=== PATIENT | female | born 1945 | race Caucasian/White ===

== ENCOUNTER → 2020-07-13 16:57 | Outpatient (CLI) | payer MEDICARE, BC, SELFPAY ==
[2020-07-13 17:40] LABS: Add Manual Diff / Slide Review NO; Basophils Absolute Auto 100 /uL (0-100); Basophils Percent Auto 0.7 % (0-2); Eosinophils Absolute Auto 200 /uL (0-450); Eosinophils Percent Auto 2.3 % (2-4); Hematocrit 41.8 % (36-46); Hemoglobin 14.1 g/dL (12.0-16.0); Lymphocytes Absolute Auto 2900 /uL (1100-4500); Lymphocytes Percent Auto 32.4 % (25-40); Mean Corpuscular HGB Conc 33.6 % (30-36); Mean Corpuscular Hemoglobin 31.6 PG (26-34); Monocytes Absolute Auto 700 /uL (0-900); Monocytes Percent Auto 8.1 % (3-14); Neutrophils Absolute Auto 5000 /uL (1500-7000); Neutrophils Percent Auto 56.5 % (50-75); Platelet Count 256 X10^3/uL (150-400); Red Blood Cell Count 4.45 X10^6/uL (4.0-5.2); Red Cell Distribution Width 13.3 % (11.6-14.8); White Blood Cell Count 8.9 X10^3/uL (4.5-11.0)
[2020-07-13 18:19] LABS: Magnesium 2.3 mg/dL (1.6-2.3); Phosphorous 4.4 mg/dL (2.8-4.1)
[2020-07-13 18:33] LABS: Vitamin D 25 Hydroxy (D3) 66.7 ng/mL (30.0-100.0)
[2020-07-13 18:34] LABS: Free T3, Triiodothyronine Free 4.15 pg/mL (2.77-5.27)
[2020-07-13 18:48] LABS: TSH w/ Reflex to FT4 0.02 uIU/mL (0.47-4.68)
[2020-07-13 20:04] LABS: Free T4, Direct Thyroxine 1.41 ng/dL (0.78-2.19)
[2020-07-14 07:08] LABS: Parathyroid Hormone Int 46 pg/mL (15-65)
[2020-07-19 07:48] LABS: Triiodothyronine T3 Reverse 16.5 ng/dL (9.2-24.1)
== END ==
PROVIDERS: PCP Family Medicine; Referring Provider Family Medicine; Visit Provider Family Medicine
DX: E03.9 Hypothyroidism, unspecified (principal); M81.8 Other osteoporosis without current pathological fracture
CPT/HCPCS: 36415; 82306; 83735; 83970; 84100; 84439; 84443; 84481; 84482; 85025

== ENCOUNTER → 2020-08-01 11:56 | Outpatient (CLI) | payer MEDICARE, BC, SELFPAY ==
--- NOTE | 2020-08-01 | DI.MG.S_ITS ---
BILATERAL DIGITAL SCREENING MAMMOGRAM 3D/2D WITH CAD: 08/01/2020 CLINICAL: Routine screening. Comparison is made to exams dated: 03/03/2019 mammogram, 02/16/2018 mammogram, and 11/04/2016 mammogram - outside location. There are scattered fibroglandular elements in both breasts. Current study was also evaluated with a Computer Aided Detection (CAD) system. There are benign post operative findings in the left breast. No significant masses, calcifications, or other findings are seen in either breast. There has been no significant interval change. IMPRESSION: BENIGN There is no mammographic evidence of malignancy. A 1 year screening mammogram is recommended. This exam was interpreted at Station ID: [id number]. NOTE: For mammograms, a report in lay terms will be sent to the patient. Approximately 15% of breast malignancies will not be visualized mammographically. In the management of a palpable breast mass, a negative mammogram must not discourage biopsy of a clinically suspicious lesion. Electronically Signed By: Adryan baca/emir:08/01/2020 13:40:35 letter sent: Normal Exam ACR BI-RADS Category 2: Benign Finding(s) 3342F
== END ==
PROVIDERS: PCP Family Medicine; Referring Provider Family Medicine; Visit Provider Family Medicine
DX: Z12.31 Encounter for screening mammogram for malignant neoplasm of breast (principal)
CPT/HCPCS: 77063; 77067

== ENCOUNTER → 2020-08-08 16:05 | Outpatient (CLI) | payer MEDICARE, BC, SELFPAY ==
[2020-08-08 18:14] LABS: Alanine Aminotransferase 49 IU/L (<35); Albumin 4.2 g/dL (3.5-5.0); Albumin Globulin Ratio 1.6 (1.0-2.8); Alkaline Phosphatase 68 U/L (38-126); Aspartate Aminotransferase 47 IU/L (14-36); BUN Creatinine Ratio 20.3 (6-22); Bilirubin Total 0.7 mg/dL (0.2-1.3); Blood Urea Nitrogen 16 mg/dL (7-17); Calcium 9.5 mg/dL (8.4-10.2); Carbon Dioxide 26 mmol/L (22-32); Chloride 107 mmol/L (98-107); Estimated Glomerular Filt Rate > 60.0 mL/min (>60); Globulin 2.7 g/dL (1.7-4.1); Glucose 220 mg/dL (80-110); HEMOLYSIS 16 (0-50); Potassium 3.9 mmol/L (3.4-5.1); Sodium 142 mmol/L (137-145); Total Protein 6.9 g/dL (6.3-8.2)
== END ==
PROVIDERS: PCP Family Medicine; Referring Provider Family Medicine; Visit Provider Family Medicine
DX: M81.8 Other osteoporosis without current pathological fracture (principal)
CPT/HCPCS: 36415; 80053

== ENCOUNTER → 2021-06-05 10:44 | Outpatient (CLI) | payer MEDICARE, OTHER, SELFPAY | PROVIDERS: PCP Family Medicine; Referring Provider Family Medicine; Visit Provider Family Medicine | DX: M81.0 Age-related osteoporosis without current pathological fracture (principal); Z78.0 Asymptomatic menopausal state; E07.9 Disorder of thyroid, unspecified; Z82.62 Family history of osteoporosis | CPT/HCPCS: 77080 ==

== ENCOUNTER → 2022-04-30 06:56 | Outpatient (CLI) | payer MEDICARE, OTHER, SELFPAY ==
[2022-04-30 07:58] LABS: Add Manual Diff / Slide Review NO; Basophils Absolute Auto 200 /uL (0-100); Basophils Percent Auto 2.4 % (0-2); Eosinophils Absolute Auto 200 /uL (0-450); Eosinophils Percent Auto 3.4 % (2-4); Hematocrit 41.6 % (36-46); Hemoglobin 13.9 g/dL (12.0-16.0); Lymphocytes Absolute Auto 2700 /uL (1100-4500); Lymphocytes Percent Auto 39.6 % (25-40); Mean Corpuscular HGB Conc 33.5 % (30-36); Mean Corpuscular Hemoglobin 31.2 PG (26-34); Mean Corpuscular Volume 92.9 fL (80-100); Monocytes Absolute Auto 600 /uL (0-900); Monocytes Percent Auto 9.3 % (3-14); Neutrophils Absolute Auto 3100 /uL (1500-7000); Neutrophils Percent Auto 45.3 % (50-75); Platelet Count 244 X10^3/uL (150-400); Red Blood Cell Count 4.47 X10^6/uL (4.0-5.2); Red Cell Distribution Width 13.3 % (11.6-14.8); White Blood Cell Count 6.8 X10^3/uL (4.5-11.0)
[2022-04-30 08:08] LABS: Alanine Aminotransferase 32 IU/L (<35); Albumin 4.4 g/dL (3.5-5.0); Albumin Globulin Ratio 1.9 (1.0-2.8); Alkaline Phosphatase 67 U/L (38-126); Aspartate Aminotransferase 39 IU/L (14-36); BUN Creatinine Ratio 25.3 (6-22); Bilirubin Total 0.7 mg/dL (0.2-1.3); Blood Urea Nitrogen 23 mg/dL (7-17); Calcium 9.7 mg/dL (8.4-10.2); Carbon Dioxide 27 mmol/L (22-32); Chloride 109 mmol/L (98-107); Cholesterol 144 mg/dL (140-199); Estimated Glomerular Filt Rate > 60 mL/min (>60); Globulin 2.3 g/dL (1.7-4.1); Glucose 105 mg/dL (80-110); HDL Cholesterol 65 mg/dL (40-60); HEMOLYSIS < 15 (0-50); LDL Cholesterol Calculated 56 mg/dL (<100); Potassium 4.4 mmol/L (3.4-5.1); Sodium 143 mmol/L (137-145); Total Protein 6.7 g/dL (6.3-8.2); Triglycerides 113 mg/dL (35-150)
[2022-04-30 08:35] LABS: Thyroid Stimulating Hormone 3.44 uIU/mL (0.47-4.68)
[2022-05-01 03:22] LABS: Free T4, Direct Thyroxine 0.78 ng/dL (0.78-2.19)
[2022-05-01 18:57] LABS: Anti Thyroglobulin Antibody <1.0 IU/mL (0.0-0.9); Thyroid Peroxidase Antibodies <8 IU/mL (0-34)
== END ==
PROVIDERS: PCP Family Medicine; Referring Provider Family Medicine; Visit Provider Family Medicine
DX: E03.9 Hypothyroidism, unspecified (principal); R73.03 Prediabetes; E78.5 Hyperlipidemia, unspecified; Z76.89 Persons encountering health services in other specified circumstances
CPT/HCPCS: 36415; 80053; 80061; 83036; 84439; 84443; 84481; 84482; 85025; 86376; 86800

== ENCOUNTER → 2022-08-12 08:02 | Outpatient (CLI) | payer MEDICARE, OTHER, SELFPAY ==
[2022-08-12 08:40] LABS: Add Manual Diff / Slide Review NO; Basophils Absolute Auto 100 /uL (0-100); Basophils Percent Auto 1.8 % (0-2); Eosinophils Absolute Auto 300 /uL (0-450); Eosinophils Percent Auto 3.6 % (2-4); Hematocrit 41.4 % (36-46); Hemoglobin 13.9 g/dL (12.0-16.0); Lymphocytes Absolute Auto 2800 /uL (1100-4500); Lymphocytes Percent Auto 40.2 % (25-40); Mean Corpuscular HGB Conc 33.6 % (30-36); Mean Corpuscular Hemoglobin 31.1 PG (26-34); Mean Corpuscular Volume 92.6 fL (80-100); Monocytes Absolute Auto 700 /uL (0-900); Monocytes Percent Auto 10.6 % (3-14); Neutrophils Absolute Auto 3100 /uL (1500-7000); Neutrophils Percent Auto 43.8 % (50-75); Platelet Count 255 X10^3/uL (150-400); Red Blood Cell Count 4.47 X10^6/uL (4.0-5.2); Red Cell Distribution Width 13.3 % (11.6-14.8); White Blood Cell Count 7.1 X10^3/uL (4.5-11.0)
[2022-08-12 08:53] LABS: BUN Creatinine Ratio 20.5 (6-22); Blood Urea Nitrogen 18 mg/dL (7-17); Calcium 8.9 mg/dL (8.4-10.2); Carbon Dioxide 22 mmol/L (22-32); Chloride 108 mmol/L (98-107); Estimated Glomerular Filt Rate > 60 mL/min (>60); Glucose 104 mg/dL (80-110); HEMOLYSIS 30 (0-50); Potassium 4.2 mmol/L (3.4-5.1); Sodium 141 mmol/L (137-145)
[2022-08-12 09:45] LABS: COVID19 -Nasal RAPID Negative (Negative)
== END ==
PROVIDERS: PCP Family Medicine; Referring Provider Internal Medicine Cardiovascular Disease; Visit Provider Internal Medicine Cardiovascular Disease
DX: Z01.812 Encounter for preprocedural laboratory examination (principal); Z20.822 Contact with and (suspected) exposure to COVID-19
CPT/HCPCS: 36415; 80048; 85025; 87635; C9803

== ENCOUNTER → 2023-01-13 06:44 | Outpatient (CLI) | payer MEDICARE, OTHER, SELFPAY ==
[2023-01-13 08:37] LABS: Add Manual Diff / Slide Review NO; Basophils Absolute Auto 100 /uL (0-100); Basophils Percent Auto 1.8 % (0-2); Eosinophils Absolute Auto 400 /uL (0-450); Hematocrit 41.1 % (36-46); Hemoglobin 13.7 g/dL (12.0-16.0); Lymphocytes Absolute Auto 3100 /uL (1100-4500); Lymphocytes Percent Auto 41.6 % (25-40); Mean Corpuscular HGB Conc 33.3 % (30-36); Mean Corpuscular Hemoglobin 30.6 PG (26-34); Mean Corpuscular Volume 91.9 fL (80-100); Monocytes Absolute Auto 700 /uL (0-900); Monocytes Percent Auto 9.3 % (3-14); Neutrophils Absolute Auto 3100 /uL (1500-7000); Neutrophils Percent Auto 42.3 % (50-75); Platelet Count 182 X10^3/uL (150-400); Red Blood Cell Count 4.48 X10^6/uL (4.0-5.2); Red Cell Distribution Width 13.6 % (11.6-14.8); White Blood Cell Count 7.4 X10^3/uL (4.5-11.0)
[2023-01-13 08:46] LABS: Alanine Aminotransferase 37 IU/L (<35); Albumin 4.1 g/dL (3.5-5.0); Albumin Globulin Ratio 1.5 (1.0-2.8); Alkaline Phosphatase 65 U/L (38-126); Aspartate Aminotransferase 40 IU/L (14-36); BUN Creatinine Ratio 25.8 (6-22); Bilirubin Total 0.4 mg/dL (0.2-1.3); Blood Urea Nitrogen 25 mg/dL (7-17); Calcium 9.5 mg/dL (8.4-10.2); Carbon Dioxide 27 mmol/L (22-32); Chloride 107 mmol/L (98-107); Cholesterol 139 mg/dL (140-199); Estimated Glomerular Filt Rate > 60 mL/min (>60); Globulin 2.8 g/dL (1.7-4.1); Glucose 89 mg/dL (80-110); HDL Cholesterol 53 mg/dL (40-60); HEMOLYSIS < 15 (0-50); LDL Cholesterol Calculated 72 mg/dL (<100); Potassium 4.4 mmol/L (3.4-5.1); Sodium 140 mmol/L (137-145); Total Protein 6.9 g/dL (6.3-8.2); Triglycerides 70 mg/dL (35-150)
[2023-01-13 09:01] LABS: Vitamin D 25 Hydroxy (D3) 35.1 ng/mL (30.0-100.0)
[2023-01-13 09:14] LABS: TSH w/ Reflex to FT4 2.05 uIU/mL (0.47-4.68)
[2023-01-14 05:21] LABS: Labcorp Hemoglobin (Hb) A1c 5.8 % (4.8-5.6)
== END ==
PROVIDERS: PCP Family Medicine; Referring Provider Family Medicine; Visit Provider Family Medicine
DX: E78.5 Hyperlipidemia, unspecified (principal); M81.0 Age-related osteoporosis without current pathological fracture; R73.03 Prediabetes
CPT/HCPCS: 36415; 80053; 80061; 82306; 83036; 84443; 85025

== ENCOUNTER 2023-01-21 12:30 | Outpatient (RCR) | payer MEDICARE, OTHER, SELFPAY | END 2023-01-21 14:30 | LOC: CAR 12:30 | PROVIDERS: PCP Family Medicine; Referring Provider Student in an Organized Health Care Education/Training Program; Visit Provider Student in an Organized Health Care Education/Training Program | DX: Z95.2 Presence of prosthetic heart valve (principal) | CPT/HCPCS: 93798 ==

== ENCOUNTER → 2023-03-13 06:54 | Outpatient (CLI) | payer MEDICARE, OTHER, SELFPAY ==
[2023-03-13 08:08] LABS: Add Manual Diff / Slide Review NO; Basophils Absolute Auto 100 /uL (0-100); Basophils Percent Auto 1.1 % (0-2); Eosinophils Absolute Auto 200 /uL (0-450); Eosinophils Percent Auto 3.5 % (2-4); Hematocrit 38.5 % (36-46); Hemoglobin 12.8 g/dL (12.0-16.0); Lymphocytes Absolute Auto 2500 /uL (1100-4500); Lymphocytes Percent Auto 36.5 % (25-40); Mean Corpuscular HGB Conc 33.3 % (30-36); Mean Corpuscular Hemoglobin 31.1 PG (26-34); Mean Corpuscular Volume 93.3 fL (80-100); Monocytes Absolute Auto 700 /uL (0-900); Monocytes Percent Auto 10.6 % (3-14); Neutrophils Absolute Auto 3300 /uL (1500-7000); Neutrophils Percent Auto 48.3 % (50-75); Platelet Count 174 X10^3/uL (150-400); Red Blood Cell Count 4.13 X10^6/uL (4.0-5.2); Red Cell Distribution Width 13.2 % (11.6-14.8); White Blood Cell Count 6.9 X10^3/uL (4.5-11.0)
[2023-03-13 08:15] LABS: Alanine Aminotransferase 34 IU/L (<35); Albumin Globulin Ratio 1.5 (1.0-2.8); Alkaline Phosphatase 68 U/L (38-126); Aspartate Aminotransferase 40 IU/L (14-36); BUN Creatinine Ratio 18.4 (6-22); Bilirubin Total 0.7 mg/dL (0.2-1.3); Blood Urea Nitrogen 16 mg/dL (7-17); Calcium 9.4 mg/dL (8.4-10.2); Carbon Dioxide 27 mmol/L (22-32); Chloride 109 mmol/L (98-107); Cholesterol 138 mg/dL (140-199); Estimated Glomerular Filt Rate > 60 mL/min (>60); Globulin 2.6 g/dL (1.7-4.1); Glucose 99 mg/dL (80-110); HDL Cholesterol 55 mg/dL (40-60); HEMOLYSIS < 15 (0-50); LDL Cholesterol Calculated 65 mg/dL (<100); Potassium 4.3 mmol/L (3.4-5.1); Sodium 141 mmol/L (137-145); Total Protein 6.6 g/dL (6.3-8.2); Triglycerides 88 mg/dL (35-150)
[2023-03-13 09:34] LABS: Free T3, Triiodothyronine Free 3.33 pg/mL (2.77-5.27); Free T4, Direct Thyroxine 0.89 ng/dL (0.78-2.19)
[2023-03-13 09:47] LABS: Thyroid Stimulating Hormone 0.686 uIU/mL (0.47-4.68)
[2023-03-14 03:36] LABS: x Labcorp Estim. Avg Glu (eAG) 131 mg/dL (.); x Labcorp Hemoglobin A1c 6.2 % (4.8-5.6)
== END ==
PROVIDERS: PCP Family Medicine; Referring Provider Family Medicine; Visit Provider Family Medicine
DX: E03.9 Hypothyroidism, unspecified (principal); M81.0 Age-related osteoporosis without current pathological fracture; E78.5 Hyperlipidemia, unspecified; R73.03 Prediabetes
CPT/HCPCS: 36415; 80053; 80061; 83036; 84439; 84443; 84481; 85025

== ENCOUNTER 2023-03-24 11:38 | Emergency (ER) | payer MEDICARE, OTHER, SELFPAY ==
[2023-03-24 11:58] VITALS: BP 210/96; PULSE 74; RESP 18; TEMP 37; O2SAT 99; BMI 21.4
--- NOTE | 2023-03-24 12:45 | ED.GENADULT ---
HPI - General Adult <Elizabeth Nair PA-C - Last Filed: 03/24/23 15:31> General Chief complaint: Hypertension Stated complaint: headache/ high BP T-1 Time Seen by Provider: 03/24/23 12:17 Source: patient Mode of arrival: Ambulatory History of Present Illness HPI narrative: 77-year-old female with past medical history cervical radiculopathy, status post TAVR, osteoporosis, hyperlipidemia, hypothyroidism presents to the ED with 2 days of high blood pressure readings. Patient states that she had a Reclast infusion yesterday after which her blood pressure reading was systolic 170s. Patient checked her blood pressure repeatedly again this morning and states that her systolic blood pressure remained in the 170s. Patient is also complaining of a frontal headache that she refers to as her usual sinus headache, but just worse this time around. Patient states that she has had this latest episode of headache for past 4 days, states that it is common for her headaches to last this many days. Patient states that she takes only an allergy medication for the headache and no other medications. Patient however does take Vicodin for her other chronic pain. Patient states that she also felt somewhat lightheaded since yesterday, feels dehydrated and dry. Patient denies chest pain, shortness of breath, fever, chills, nausea, vomiting, dizziness, syncope. Related Data Home Medications Medication Instructions Recorded Confirmed cromolyn 5.2 mg/spray (4 %) nasal 1 spray intranasal ONCE 04/29/22 03/27/23 spray (Nasalcrom) fexofenadine 60 mg-pseudoephedrine 1 tab PO Q12H PRN 04/29/22 03/27/23 ER 120 mg tablet,ext.release,12 hr (Valorie-D 12 Hour) multivitamin 1 tab PO DAILY 04/29/22 03/27/23 albuterol sulfate 90 mcg/actuation 1 puff inhalation DAILY PRN 05/09/22 03/27/23 aerosol inhaler Previous Rx's Medication Instructions Recorded atorvastatin 10 mg tablet 10 mg PO DAILY #90 tabs 05/22/22 buspirone 15 mg tablet 15 mg PO BID #90 tabs 05/22/22 levothyroxine 50 mcg tablet 50 mcg PO DAILY #90 tabs 05/22/22 liothyronine 5 mcg tablet 5 mcg PO DAILY #90 tabs 05/22/22 lisinopril 5 mg tablet 5 mg PO DAILY #90 tabs 05/22/22 metformin 500 mg tablet,extended 500 mg PO DAILY #90 tabs 05/22/22 release 24 hr montelukast 10 mg tablet 10 mg PO DAILY #90 tabs 05/22/22 omeprazole 40 mg capsule,delayed 40 mg PO DAILY PRN GERD #60 caps 05/22/22 release zoledronic acid 5 mg/100 mL in See Rx Instructions IV ONCE #100 mL 02/10/23 mannitol 5 %-water intravenous piggybck (Reclast) hydrocodone 10 mg-acetaminophen 1 tab PO BID PRN pain #60 tabs 03/23/23 325 mg tablet alprazolam 1 mg tablet 1 mg PO BID PRN anxiety #60 tabs 03/27/23 Allergies Allergy/AdvReac Type Severity Reaction Status Date / Time Sulfa (Sulfonamide Allergy Mild Rash Verified 03/27/23 11:26 Antibiotics) Environmental:trees, Allergy Mild SOB Uncoded 03/27/23 11:26 grasses, eucalypys Review of Systems <Elizabeth Nair PA-C - Last Filed: 03/24/23 15:31> Review of Systems ROS Unobtainable: All systems reviewed & are unremarkable except as noted in HPI and below Constitutional Constitutional: Denies chills, Denies fatigue, Denies fever(s), Denies frequent falls, Reports headache(s), Denies lethargy and Denies weakness Eyes Eyes: Denies change in vision, Denies eye discharge, Denies irritation and Denies loss of vision ENT Ears, Nose, Mouth, and Throat: Denies change in voice, Denies dizziness, Reports headache(s), Denies neck pain, Denies sore throat and Denies throat swelling Cardiovascular Cardiovascular: Denies chest pain, Denies irregular heart rhythm, Reports lightheadedness, Denies palpitations, Denies dyspnea, Denies dyspnea on exertion and Denies orthopnea Respiratory Respiratory: Denies cough, Denies dyspnea, Denies dyspnea on exertion and Denies wheezing Gastrointestinal Gastrointestinal: Denies abdominal pain, Denies change in bowel habits, Denies diarrhea, Denies nausea and Denies vomiting Genitourinary Genitourinary: Denies hematuria, Denies flank pain, Denies urinary incontinence and Denies urinary urgency Musculoskeletal Musculoskeletal: Denies back pain, Denies muscle weakness, Denies neck pain, Denies numbness and Denies tingling Integumentary/Breasts Skin/Breast: Denies pruritus, Denies erythema, Denies rash and Denies wounds Neurologic Neurologic: Denies behavioral changes, Denies confusion, Denies dizziness, Denies frequent falls, Reports headache(s), Denies loss of vision, Denies numbness, Denies tingling and Denies weakness Psychiatric Psychiatric: Denies anxiety, Denies behavioral changes, Denies confusion, Denies depression, Denies homicidal ideation and Denies suicidal ideation Endocrine Endocrine: Denies fatigue, Denies flushing and Denies palpitations Hematologic/Lymphatic Hematologic/Lymphatic: Denies easy bruising Allergic/Immunologic Allergic/Immunologic: Denies urticaria, Denies throat swelling and Denies wheezing Patient History <Elizabeth Nair PA-C - Last Filed: 03/24/23 15:31> Medical History Anxiety about health Aortic stenosis Cervical radiculopathy Cervical somatic dysfunction Chronic bilateral low back pain with bilateral sciatica Chronic neck pain Chronic thoracic back pain Cranial somatic dysfunction Hyperlipidemia Hypothyroidism (acquired) Lumbar region somatic dysfunction Osteoporosis Pelvic somatic dysfunction Pre-diabetes Problems related to lack of adequate sleep PTSD (post-traumatic stress disorder) Sacral region somatic dysfunction Scoliosis of thoracolumbar spine Segmental and somatic dysfunction of abdomen and other regions Segmental and somatic dysfunction of rib cage Thoracic region somatic dysfunction Upper extremity somatic dysfunction Surgical History History of appendectomy History of back surgery Hx of cholecystectomy Status post transcatheter aortic valve replacement (TAVR) using bioprosthesis Family History Mother Stroke Father CAD (coronary artery disease) Social History Smoking Status: Never smoker Smoking Status: Never smoker alcohol intake frequency: 0-2 drinks per day Substance Use Type: does not use Exam <Elizabeth Nair PA-C - Last Filed: 03/24/23 15:31> Narrative Exam Narrative: Const General:?cooperative, healthy appearing and comfortable HENKS Head:?normal to inspection Ears:?hearing grossly normal bilaterally Nose:?external nose normal Face and sinus:?normal facial exam and sinuses nontender Mouth:?oral mucosae normal Throat:?posterior oropharynx normal Eyes General:?appearance normal, both eyes and all related structures Neck Neck:?normal visual inspection and no lymphadenopathy noted Resp Effort & Inspection:?normal respiratory effort Auscultation:?clear to auscultation bilaterally Cardio Rate:?regular rate Rhythm:?regular rhythm Neuro General:?patient alert, patient awake and patient oriented x3; PERRLA; CN 1 through 12 intact bilaterally; gait is intact Initial Vital Signs Initial Vital Signs: Vital Signs Temperature 98.6 F 03/24/23 11:58 Pulse Rate 74 03/24/23 11:58 Respiratory Rate 18 03/24/23 11:58 Blood Pressure 210/96 H 03/24/23 11:58 Pulse Oximetry 99 03/24/23 11:58 Oxygen Delivery Method Room Air 03/24/23 11:58 <Celia Coronel DO - Last Filed: 03/30/23 14:24> Initial Vital Signs Initial Vital Signs: Vital Signs Temperature 98.6 F 03/24/23 11:58 Pulse Rate 74 03/24/23 11:58 Respiratory Rate 18 03/24/23 11:58 Blood Pressure 210/96 H 03/24/23 11:58 Pulse Oximetry 99 03/24/23 11:58 Oxygen Delivery Method Room Air 03/24/23 11:58 Course <Elizabeth Nair PA-C - Last Filed: 03/24/23 15:31> Orders Ordered: Discontinued Medications Acetaminophen (Acetaminophen 325 Mg Tablet) 975 mg PO NOW ONE Stop: 03/24/23 12:31 Last Admin: 03/24/23 13:25 Dose: 975 mg Documented By: SPF Dexamethasone (Dexamethasone 10 Mg/Ml Vial) 10 mg IV NOW ONE Stop: 03/24/23 12:31 Last Admin: 03/24/23 13:31 Dose: 10 mg Documented By: SPF Diphenhydramine HCl (Diphenhydramine 50 Mg/Ml Vial) 25 mg IV NOW ONE Stop: 03/24/23 12:31 Last Admin: 03/24/23 13:38 Dose: 25 mg Documented By: SPF Sodium Chloride (Normal Saline 0.9%) 1,000 mls @ 1,000 mls/hr IV BOLUS ONE Stop: 03/24/23 13:29 Last Infusion: 03/24/23 14:41 Dose: 0 mls/hr Documented By: Admin: 03/24/23 13:20 Dose: 1,000 mls/hr Documented By: SPF Ketorolac Tromethamine (Ketorolac 30 Mg/Ml Vial) 15 mg IV NOW ONE Stop: 03/24/23 12:31 Last Admin: 03/24/23 13:42 Dose: 15 mg Documented By: SPF Metoclopramide HCl (Metoclopramide 10 Mg/2 Ml Inj) 10 mg IV NOW ONE Stop: 03/24/23 12:31 Last Admin: 03/24/23 13:21 Dose: 10 mg Documented By: SPF Vital Signs Vital signs: Vital Signs - 8 hr 03/24/23 11:58 03/24/23 13:45 03/24/23 14:02 Temperature 98.6 F Pulse Rate 74 65 Respiratory Rate 18 12 Blood Pressure 210/96 H 198/90 H 183/81 H Pulse Oximetry 99 99 Oxygen Delivery Method Room Air Room Air 03/24/23 14:40 03/24/23 14:57 03/24/23 15:15 Temperature Pulse Rate 70 70 68 Respiratory Rate 14 16 15 Blood Pressure 191/84 H 145/67 H Pulse Oximetry 97 96 94 Oxygen Delivery Method Room Air Room Air Room Air <Celia Coronel DO - Last Filed: 03/30/23 14:24> Orders Ordered: Discontinued Medications Acetaminophen (Acetaminophen 325 Mg Tablet) 975 mg PO NOW ONE Stop: 03/24/23 12:31 Last Admin: 03/24/23 13:25 Dose: 975 mg Documented By: MYRON Dexamethasone (Dexamethasone 10 Mg/Ml Vial) 10 mg IV NOW ONE Stop: 03/24/23 12:31 Last Admin: 03/24/23 13:31 Dose: 10 mg Documented By: SPF Diphenhydramine HCl (Diphenhydramine 50 Mg/Ml Vial) 25 mg IV NOW ONE Stop: 03/24/23 12:31 Last Admin: 03/24/23 13:38 Dose: 25 mg Documented By: SPF Sodium Chloride (Normal Saline 0.9%) 1,000 mls @ 1,000 mls/hr IV BOLUS ONE Stop: 03/24/23 13:29 Last Infusion: 03/24/23 14:41 Dose: 0 mls/hr Documented By: Admin: 03/24/23 13:20 Dose: 1,000 mls/hr Documented By: MYRON Ketorolac Tromethamine (Ketorolac 30 Mg/Ml Vial) 15 mg IV NOW ONE Stop: 03/24/23 12:31 Last Admin: 03/24/23 13:42 Dose: 15 mg Documented By: MYRON Metoclopramide HCl (Metoclopramide 10 Mg/2 Ml Inj) 10 mg IV NOW ONE Stop: 03/24/23 12:31 Last Admin: 03/24/23 13:21 Dose: 10 mg Documented By: MYRON Vital Signs Vital signs: Vital Signs - 8 hr 03/24/23 11:58 03/24/23 13:45 03/24/23 14:02 Temperature 98.6 F Pulse Rate 74 65 Respiratory Rate 18 12 Blood Pressure 210/96 H 198/90 H 183/81 H Pulse Oximetry 99 99 Oxygen Delivery Method Room Air Room Air 03/24/23 14:40 03/24/23 14:57 03/24/23 15:15 Temperature Pulse Rate 70 70 68 Respiratory Rate 14 16 15 Blood Pressure 191/84 H 145/67 H Pulse Oximetry 97 96 94 Oxygen Delivery Method Room Air Room Air Room Air Medical Decision Making <Elizabeth Nair PA-C - Last Filed: 03/24/23 15:31> Lab Data 03/24/23 13:00 03/24/23 14:55 Labs: Lab Results 03/24/23 03/24/23 03/24/23 Range/Units 13:00 13:00 13:00 WBC 8.7 (4.5-11.0) X10^3/uL RBC 4.06 (4.0-5.2) X10^6/uL Hgb 12.6 (12.0-16.0) g/dL Hct 37.7 (36-46) % MCV 92.9 (80-100) fL MCH 31.1 (26-34) PG MCHC 33.5 (30-36) % RDW 13.7 (11.6-14.8) % Plt Count 165 (150-400) X10^3/uL Neut % (Auto) 72.1 (50-75) % Lymph % (Auto) 17.3 L (25-40) % [place] % (Auto) 7.1 (3-14) % Eos % (Auto) 2.2 (2-4) % Baso % (Auto) 1.3 (0-2) % Neut # (Auto) 6300 (6064-2931) /uL Lymph # (Auto) 1500 (9936-8436) /uL [place] # (Auto) 600 (0-900) /uL Eos # (Auto) 200 (0-450) /uL Baso # (Auto) 100 (0-100) /uL PT 13.4 H (10.1-12.7) SECONDS INR 1.2 (0.9-1.3) APTT 30 (26-36) SECONDS Sodium (137-145) mmol/L Potassium (3.4-5.1) mmol/L Chloride (98-107) mmol/L Carbon Dioxide (22-32) mmol/L BUN (7-17) mg/dL Creatinine (0.52-1.04) mg/dL Estimated GFR (>60) mL/min BUN/Creatinine Ratio (6-22) Glucose (80-110) mg/dL Calcium (8.4-10.2) mg/dL Magnesium (1.6-2.3) mg/dL Total Bilirubin (0.2-1.3) mg/dL AST (14-36) IU/L ALT (<35) IU/L Alkaline Phosphatase (38-126) U/L Total Creatine Kinase CK-MB (CK-2) CK-MB (CK-2) Rel Index Troponin I 0.019 (0.01-0.034) ng/mL Total Protein (6.3-8.2) g/dL Albumin (3.5-5.0) g/dL Globulin (1.7-4.1) g/dL Albumin/Globulin Ratio (1.0-2.8) Lipase (23-300) U/L 03/24/23 Range/Units 14:55 WBC (4.5-11.0) X10^3/uL RBC (4.0-5.2) X10^6/uL Hgb (12.0-16.0) g/dL Hct (36-46) % MCV (80-100) fL MCH (26-34) PG MCHC (30-36) % RDW (11.6-14.8) % Plt Count (150-400) X10^3/uL Neut % (Auto) (50-75) % Lymph % (Auto) (25-40) % [place] % (Auto) (3-14) % Eos % (Auto) (2-4) % Baso % (Auto) (0-2) % Neut # (Auto) (3474-9028) /uL Lymph # (Auto) (4148-7461) /uL [place] # (Auto) (0-900) /uL Eos # (Auto) (0-450) /uL Baso # (Auto) (0-100) /uL PT (10.1-12.7) SECONDS INR (0.9-1.3) APTT (26-36) SECONDS Sodium 142 (137-145) mmol/L Potassium 3.8 (3.4-5.1) mmol/L Chloride 113 H (98-107) mmol/L Carbon Dioxide 21 L (22-32) mmol/L BUN 12 (7-17) mg/dL Creatinine 0.73 (0.52-1.04) mg/dL Estimated GFR > 60 (>60) mL/min BUN/Creatinine Ratio 16.4 (6-22) Glucose 101 (80-110) mg/dL Calcium 8.4 (8.4-10.2) mg/dL Magnesium 2.2 (1.6-2.3) mg/dL Total Bilirubin 0.7 (0.2-1.3) mg/dL AST 42 H (14-36) IU/L ALT 37 H (<35) IU/L Alkaline Phosphatase 70 (38-126) U/L Total Creatine Kinase Cancelled CK-MB (CK-2) Cancelled CK-MB (CK-2) Rel Index Cancelled Troponin I Cancelled (0.01-0.034) ng/mL Total Protein 6.1 L (6.3-8.2) g/dL Albumin 3.8 (3.5-5.0) g/dL Globulin 2.3 (1.7-4.1) g/dL Albumin/Globulin Ratio 1.7 (1.0-2.8) Lipase 45 (23-300) U/L [facility] Narrative Medical decision making narrative: 77-year-old female with past medical history cervical radiculopathy, status post TAVR, osteoporosis, hyperlipidemia, hypothyroidism presents to the ED with 2 days of high blood pressure readings. Concern for primary headache versus hypertensive urgency versus hypertensive emergency versus elevated blood pressure reading versus other. Will obtain labs, chest x-ray, EKG, coags, troponin. Will treat headache with IV fluids, Toradol, Tylenol, Reglan, Benadryl, dexamethasone. Will reassess. Workup largely unremarkable. EKG normal sinus rhythm no acute ST-T changes. Chest x-ray without acute findings. Labs within normal limits. Patient's symptoms vastly improved with the headache medications. Patient's blood pressure appropriately dropped down to systolic 145. Counseled patient that blood pressure can go up with pain, stress, anxiety. Advise good pain control for headaches. Advise follow-up with PCP for maintenance medications and further evaluation of frequent headaches. ED return precautions were discussed with patient. Patient verbalized understanding. Medical records reviewed: Yes <Celia Coronel DO - Last Filed: 03/30/23 14:24> Lab Data Labs: Lab Results 03/24/23 03/24/23 03/24/23 Range/Units 13:00 13:00 13:00 WBC 8.7 (4.5-11.0) X10^3/uL RBC 4.06 (4.0-5.2) X10^6/uL Hgb 12.6 (12.0-16.0) g/dL Hct 37.7 (36-46) % MCV 92.9 (80-100) fL MCH 31.1 (26-34) PG MCHC 33.5 (30-36) % RDW 13.7 (11.6-14.8) % Plt Count 165 (150-400) X10^3/uL Neut % (Auto) 72.1 (50-75) % Lymph % (Auto) 17.3 L (25-40) % [place] % (Auto) 7.1 (3-14) % Eos % (Auto) 2.2 (2-4) % Baso % (Auto) 1.3 (0-2) % Neut # (Auto) 6300 (0395-4035) /uL Lymph # (Auto) 1500 (2289-4090) /uL [place] # (Auto) 600 (0-900) /uL Eos # (Auto) 200 (0-450) /uL Baso # (Auto) 100 (0-100) /uL PT 13.4 H (10.1-12.7) SECONDS INR 1.2 (0.9-1.3) APTT 30 (26-36) SECONDS Sodium (137-145) mmol/L Potassium (3.4-5.1) mmol/L Chloride (98-107) mmol/L Carbon Dioxide (22-32) mmol/L BUN (7-17) mg/dL Creatinine (0.52-1.04) mg/dL Estimated GFR (>60) mL/min BUN/Creatinine Ratio (6-22) Glucose (80-110) mg/dL Calcium (8.4-10.2) mg/dL Magnesium (1.6-2.3) mg/dL Total Bilirubin (0.2-1.3) mg/dL AST (14-36) IU/L ALT (<35) IU/L Alkaline Phosphatase (38-126) U/L Total Creatine Kinase CK-MB (CK-2) CK-MB (CK-2) Rel Index Troponin I 0.019 (0.01-0.034) ng/mL Total Protein (6.3-8.2) g/dL Albumin (3.5-5.0) g/dL Globulin (1.7-4.1) g/dL Albumin/Globulin Ratio (1.0-2.8) Lipase (23-300) U/L // Range/Units 14:55 WBC (4.5-11.0) X10^3/uL RBC (4.0-5.2) X10^6/uL Hgb (12.0-16.0) g/dL Hct (36-46) % MCV (80-100) fL MCH (26-34) PG MCHC (30-36) % RDW (11.6-14.8) % Plt Count (150-400) X10^3/uL Neut % (Auto) (50-75) % Lymph % (Auto) (25-40) % [place] % (Auto) (3-14) % Eos % (Auto) (2-4) % Baso % (Auto) (0-2) % Neut # (Auto) (6450-8992) /uL Lymph # (Auto) (6372-2862) /uL [place] # (Auto) (0-900) /uL Eos # (Auto) (0-450) /uL Baso # (Auto) (0-100) /uL PT (10.1-12.7) SECONDS INR (0.9-1.3) APTT (26-36) SECONDS Sodium 142 (137-145) mmol/L Potassium 3.8 (3.4-5.1) mmol/L Chloride 113 H (98-107) mmol/L Carbon Dioxide 21 L (22-32) mmol/L BUN 12 (7-17) mg/dL Creatinine 0.73 (0.52-1.04) mg/dL Estimated GFR > 60 (>60) mL/min BUN/Creatinine Ratio 16.4 (6-22) Glucose 101 (80-110) mg/dL Calcium 8.4 (8.4-10.2) mg/dL Magnesium 2.2 (1.6-2.3) mg/dL Total Bilirubin 0.7 (0.2-1.3) mg/dL AST 42 H (14-36) IU/L ALT 37 H (<35) IU/L Alkaline Phosphatase 70 (38-126) U/L Total Creatine Kinase Cancelled CK-MB (CK-2) Cancelled CK-MB (CK-2) Rel Index Cancelled Troponin I Cancelled (0.01-0.034) ng/mL Total Protein 6.1 L (6.3-8.2) g/dL Albumin 3.8 (3.5-5.0) g/dL Globulin 2.3 (1.7-4.1) g/dL Albumin/Globulin Ratio 1.7 (1.0-2.8) Lipase 45 (23-300) U/L ECG Data Interpretation: [place]: Sinus rhythm rate 64 UT interval 144 QRS [address] QTC [address] changes no priors to compare Discharge Plan Departure Patient Disposition: Home Clinical Impression: High blood pressure, Headache Instructions: DI for High Blood Pressure, DI for Headache Activity Restrictions/Additional Instructions: You were evaluated in the ED today for high blood pressure and headache. Your headache was treated with Toradol, Tylenol, IV fluids, dexamethasone, Reglan, Benadryl. Your symptoms improved with the medications. Your blood pressure was initially 210/96, and settled down at 145/67 once the headache was addressed. Blood pressure can increase with stress, anxiety, pain. Therefore it is important to control your pain appropriately. You may take Tylenol 1000 mg 3 times a day and ibuprofen 800 mg 3 times a day with food for headache. Please follow-up with your primary care doctor for further evaluation of these frequent headaches and possible maintenance medications for it. Return to the ED if your symptoms worsen, you have persistent vomiting, chest pain, shortness of breath. Prescriptions: No Action zoledronic [id number] [Reclast] 5 mg/100 mL piggyback See Rx Instructions IV ONCE Qty: 100 0RF Rx Instructions: 5 mg intravenously once; administer over at least 15 mins hydrocodone-acetaminophen 10-325 mg tablet 1 tab PO BID PRN (Reason: pain) Qty: 60 0RF atorvastatin 10 mg tablet 10 mg PO DAILY Qty: 90 3RF buspirone 15 mg tablet 15 mg PO BID Qty: 90 3RF levothyroxine 50 mcg tablet 50 mcg PO DAILY Qty: 90 3RF liothyronine 5 mcg tablet 5 mcg PO DAILY Qty: 90 3RF lisinopril 5 mg tablet 5 mg PO DAILY Qty: 90 3RF metformin 500 mg tablet extended release 24 hr 500 mg PO DAILY Qty: 90 3RF Hold Instructions: trial hold Rx Instructions: with dinner montelukast 10 mg tablet 10 mg PO DAILY Qty: 90 3RF omeprazole 40 mg capsule,delayed release(DR/EC) 40 mg PO DAILY PRN (Reason: GERD) Qty: 60 3RF albuterol sulfate 90 mcg/actuation HFA aerosol inhaler 1 puff inhalation DAILY PRN cromolyn [Nasalcrom] 5.2 mg/spray (4 %) spray,non-aerosol 1 spray intranasal ONCE multivitamin Tablet 1 tab PO DAILY fexofenadine-pseudoephedrine [Valorie-D 12 Hour] 60-120 mg tablet extended release 12 hr 1 tab PO Q12H PRN alprazolam 1 mg tablet 1 mg PO BID PRN (Reason: anxiety) Qty: 60 5RF Referrals: Ozzy Barton DO [Primary Care Provider] - Stand Alone Forms: Patient Portal/API <Celia Coronel DO - Last Filed: 03/30/23 14:24> Cosign ED Attending Saravananature Attestation: I was immediately available in the department for consultation. Documentation has been reviewed.
--- NOTE | 2023-03-24 12:50 | DI.RAD.S_ITS ---
PROCEDURE: XR CHEST 2V INDICATIONS: HTN TECHNIQUE: 2 views of the chest were acquired. COMPARISON: None. FINDINGS: Surgical changes and devices: Prior valvular replacement. Lungs and pleura: Lungs are clear. No pleural effusions or pneumothorax. Mediastinum: Mediastinal contours are normal. Heart size is normal. Bones and chest wall: No suspicious bony abnormalities. Soft tissues appear unremarkable. S-shaped scoliotic curvature of the visualized spine. IMPRESSION: No acute cardiopulmonary abnormalities identified. No focal airspace disease. Dictated by: Jovanny Grace M.D. on 03/24/2023 at 13:23 Approved by: Jovanny Grace M.D. on 03/24/2023 at 13:24
[2023-03-24 13:14] LABS: Add Manual Diff / Slide Review NO; Basophils Absolute Auto 100 /uL (0-100); Basophils Percent Auto 1.3 % (0-2); Eosinophils Absolute Auto 200 /uL (0-450); Eosinophils Percent Auto 2.2 % (2-4); Hematocrit 37.7 % (36-46); Hemoglobin 12.6 g/dL (12.0-16.0); Lymphocytes Absolute Auto 1500 /uL (1100-4500); Lymphocytes Percent Auto 17.3 % (25-40); Mean Corpuscular HGB Conc 33.5 % (30-36); Mean Corpuscular Hemoglobin 31.1 PG (26-34); Mean Corpuscular Volume 92.9 fL (80-100); Monocytes Absolute Auto 600 /uL (0-900); Monocytes Percent Auto 7.1 % (3-14); Neutrophils Absolute Auto 6300 /uL (1500-7000); Neutrophils Percent Auto 72.1 % (50-75); Platelet Count 165 X10^3/uL (150-400); Red Blood Cell Count 4.06 X10^6/uL (4.0-5.2); Red Cell Distribution Width 13.7 % (11.6-14.8); White Blood Cell Count 8.7 X10^3/uL (4.5-11.0)
[2023-03-24] MEDS: SODIUM CHLORIDE 0.9% 1,000 ML 1000 ML IV (13:20)
[2023-03-24] MEDS: METOCLOPRAMIDE 10 MG/2 ML INJ IV (13:21)
[2023-03-24 13:22] LABS: INR 1.2 (0.9-1.3); Prothrombin Time 13.4 SECONDS (10.1-12.7)
[2023-03-24 13:25] LABS: PTT Partial Thromboplastin Tim 30 SECONDS (26-36)
[2023-03-24] MEDS: ACETAMINOPHEN 325 MG TABLET 975 MG PO (13:25)
[2023-03-24] MEDS: DEXAMETHASONE 10 MG/ML VIAL IV (13:31)
[2023-03-24] MEDS: diphenhydrAMINE 50 MG/ML VIAL 25 MG IV (13:38)
[2023-03-24] MEDS: KETOROLAC 30 MG/ML VIAL 15 MG IV (13:42)
[2023-03-24 13:43] LABS: Troponin I 0.019 ng/mL (0.01-0.034)
[2023-03-24 13:45] VITALS: BP 198/90
[2023-03-24 14:02] VITALS: BP 183/81; PULSE 65; RESP 12; O2SAT 99
[2023-03-24 14:40] VITALS: BP 191/84; PULSE 70; RESP 14; O2SAT 97
[2023-03-24 14:57] VITALS: PULSE 70; RESP 16; O2SAT 96
[2023-03-24 15:15] VITALS: BP 145/67; PULSE 68; RESP 15; O2SAT 94
[2023-03-24 15:32] LABS: Alanine Aminotransferase 37 IU/L (<35); Albumin 3.8 g/dL (3.5-5.0); Albumin Globulin Ratio 1.7 (1.0-2.8); Alkaline Phosphatase 70 U/L (38-126); Aspartate Aminotransferase 42 IU/L (14-36); BUN Creatinine Ratio 16.4 (6-22); Bilirubin Total 0.7 mg/dL (0.2-1.3); Blood Urea Nitrogen 12 mg/dL (7-17); Calcium 8.4 mg/dL (8.4-10.2); Carbon Dioxide 21 mmol/L (22-32); Chloride 113 mmol/L (98-107); Estimated Glomerular Filt Rate > 60 mL/min (>60); Globulin 2.3 g/dL (1.7-4.1); Glucose 101 mg/dL (80-110); HEMOLYSIS < 15 (0-50); Lipase 45 U/L (23-300); Potassium 3.8 mmol/L (3.4-5.1); Sodium 142 mmol/L (137-145); Total Protein 6.1 g/dL (6.3-8.2)
[2023-03-24 15:41] LABS: Magnesium 2.2 mg/dL (1.6-2.3)
== END 2023-03-24 15:42 | disposition home or self-care (01) ==
PROVIDERS: Emergency Medicine; Emergency Provider Student in an Organized Health Care Education/Training Program; PCP Family Medicine
DX: R03.0 Elevated blood-pressure reading, without diagnosis of hypertension (principal); R51.9 Headache, unspecified; R07.9 Chest pain, unspecified
CPT/HCPCS: 36415; 71046; 80053; 83690; 83735; 84484; 85025; 85610; 85730; 93005; 93010; 96374; 96375; 99284; J1100; J1200; J1885; J2765